=== PATIENT | male | born 1925 | race Caucasian/White ===

== ENCOUNTER 2016-05-28 17:57 | Inpatient (IN) | payer MEDICARE, BC ==
[~2016-05-28] VITALS: Ht 177.8 cm; Wt 64.4 kg
[2016-05-28] MEDS: NovoLOG Insulin Flexpen SUBQ SCH (00:30)
[2016-05-28 18:18] VITALS: BP 73/52
[2016-05-28] MEDS ORDERED: Solu-MEDROL 125mg Inj IVP ONE (18:30)
[2016-05-28 19:00] VITALS: BP 73/52
[2016-05-28 19:15] LABS: APPEARANCE,URINE CLEAR; KETONES,URINE NEGATIVE (NEGATIVE); LEUKOCYTE ESTERASE ,URINE NEGATIVE (NEGATIVE); NITRITE,URINE NEGATIVE (NEGATIVE); PH,URINE 5 (4.5-8.0); PROTEIN,URINE NEGATIVE (NEGATIVE); UROBILINOGEN,URINE NORMAL MG/DL (0.0-1.0)
[2016-05-28 19:24] LABS: AMORPHOUS SEDIMENT,UR FEW /LPF; BACTERIA,URINE FEW /HPF; WBC,URINE 0-2 /HPF (0 - 0)
[2016-05-28 19:26] LABS: MEAN CORPUSCULAR HEMOGLOBIN 34.5 PG (27.0-31.0); MEAN CORPUSCULAR HGB CONC 35.1 G/DL (32.0-36.0); MEAN CORPUSCULAR VOLUME 98 FL (80-99); MEAN PLATELET VOLUME 6.1 FL (6.5-10.1); PLATELET COUNT 285 K/UL (150-450); RED BLOOD COUNT 3.82 M/UL (4.70-6.10); RED CELL DISTRIBUTION WIDTH 13.6 % (11.6-14.8); WHITE BLOOD COUNT 13.5 K/UL (4.8-10.8)
[2016-05-28 19:36] LABS: REFLEX LACTIC ACID YES OR NO YES
[2016-05-28] MEDS ORDERED: Piperacillin/Tazobactam 3.375 GM in NS 110 ML IVPB ONE (20:15)
[2016-05-28] MEDS ORDERED: Zosyn 3.375gm inj ONE (20:21)
[2016-05-28 20:31] LABS: ALANINE AMINOTRANSFERASE 83 U/L (3-41); ALBUMIN/GLOBULIN RATIO 0.7 (1.0-2.7); ANION GAP 21 (5-15); ASPARTATE AMINO TRANSFERASE 83 U/L (5-40); CHLORIDE 116 mEQ/L (98-107); CREATININE 1.4 mg/dL (0.7-1.2); HEMOLYSIS 31; POTASSIUM 3.5 mEQ/L (3.4-4.9); SODIUM 143 mEQ/L (135-145); TOTAL PROTEIN 3.2 g/dL (6.6-8.7)
[2016-05-28 20:40] LABS: TROPONIN I 3.13 ng/mL (<=0.30)
[2016-05-28 20:43] LABS: CKMB 8.6 ng/mL (< 6.7)
[2016-05-28 20:50] LABS: CARBON DIOXIDE < 6 mEQ/L (20-30)
[2016-05-28 20:51] LABS: BAND NEUTROPHILS % (MANUAL) 1 % (0-8); EOSINOPHILS % (MANUAL) 1 % (0-3); LYMPHOCYTES % (MANUAL) 10 % (20-45); NEUTROPHILS % (MANUAL) 83 % (45-75); TOTAL CELLS COUNTED 100
[2016-05-28 20:51] LABS: CALCIUM 4.6 mg/dL (8.6-10.2)
[2016-05-28 20:52] LABS: BASOPHILS % (MANUAL) 0 % (0-2); PLATELET ESTIMATE ADEQUATE; PLATELET MORPHOLOGY NORMAL
[2016-05-28] MEDS ORDERED: Vancomycin 1gm inj IVPB ONE (21:09)
[2016-05-28 21:20] VITALS: BP 107/57
[2016-05-28] MEDS ORDERED: Vancomycin 1gm/D5W 275ml IVPB ONE ×2 (21:30)
[2016-05-28] MEDS ORDERED: Aspirin Baby 81mg ORAL ONE (21:30)
--- NOTE | 2016-05-28 22:08 | Emergency Room Report ---
History of Present Illness General Chief Complaint: Generalized Weakness Source: Patient, Family Member, EMS Present Illness HPI 89-year-old male presents to ED for evaluation. Patient brought in because for the last few days he's been feeling very weak and not eating or drinking. BP low as per EMS. Patient has extensive cardiac history, pacemaker, history of rheumatoid arthritis. Patient recently started on injections for rheumatoid arthritis which made him very weak with poor appetite. Denies any fevers or chills. Denies chest pain or shortness of breath. PMD is Dr. Mahmood. No other aggravating or relieving factors. Denies any other associated symptoms Allergies: Coded Allergies: No Known Allergies (Unverified , 05/28/16) Patient History Past Medical History: other - rheumatoid lung Past Surgical History: pacemaker Pertinent Family History: none Social History: Denies: alcohol use, drug use, smoking Immunizations: UTD Reviewed Nursing Documentation: PMH: Agreed, PSxH: Agreed Nursing Documentation-PMH Past Medical History: No History, Except For Hx Cardiac Problems: Yes - PACEMAKER Review of Systems All Other Systems: negative except mentioned in HPI Physical Exam Vital Signs Date Time Temp Pulse Resp B/P Pulse Ox O2 Delivery O2 Flow Rate FiO2 05/28/16 18:00 96 20 68/43 100 Room Air Sp02 EP Interpretation: reviewed, normal General Appearance: cachetic, lethargic, thin Head: normocephalic Eyes: bilateral eye PERRL, bilateral eye normal inspection ENT: hearing grossly normal, normal pharynx, no angioedema, normal voice Neck: full range of motion, supple/symm/no masses Respiratory: crackles Cardiovascular #1: regular rate, rhythm, no edema Gastrointestinal: normal bowel sounds, non tender, soft, non-distended, no guarding, no rebound Rectal: deferred Genitourinary: no CVA tenderness Musculoskeletal: normal inspection Neurologic: other - lethagic Psychiatric: other - lethargic Skin: normal inspection Lymphatic: normal inspection Procedures Critical Care Time Critical Care Time i. I feel this is a highly complex case requiring extensive working including EKG/Rhythm strip, Xray/CT/US, Blood/urine lab work, repeat exams while in ED, and administration of strong opiates/narcotics for pain control, admission to hospital or close patient follow up. Total time: 30 min bedside evaluation and treatment excludes procedures (EKG). Reason for critical care: hypotensive. weak. elevated troponin Possible complications: hypotension, hypertension, [place], shock, arrhythmias, metabolic acidosis, end organ damage, respiratory failure. Interventions: labs, IVFs, solumedrol. Abx. Aspirin Course: Patient brought in for hypotension and weakness. WBC elevated, trop > 3 , lactate > 3. BP slowly improving with IVFs. solumedrol. given abx. given aspirin Consultations: nursing staff, EMS, family Performed by: Dr Lutz Tolerated well condition = critical j. because of unstable vital signs this patient had a condition that could potentially threaten life or limb. I feel this is a critical patient who required my full attention while patient was considered critical. Total Critical Care Time excluding procedures was greater than 35 minutes Medical Decision Making Diagnostic Impression: Primary Impression: NSTEMI (non-ST elevated myocardial infarction) Additional Impressions: Severe sepsis Hypotension Qualified Codes: I95.9 - Hypotension, unspecified CHF exacerbation Qualified Codes: I50.9 - Heart failure, unspecified ER Course Hospital Course He-year-old male brought to ED for generalized weakness, poor appetite, hypotensive Differential diagnoses include: [place]/unstable angina, sepsis, dehydration Clinical course patient placed on stretcher. After initial history and physical I ordered labs , IV fluids, EKG, chest x-ray labs reviewed- noted leukocytosis, electrolytes ok, lactate > 3, troponins > 3, BNP elevated EKG- Ventricular paced rhythm, no acute ischemic chhanges Chest x-ray- pacemaker, cardiomegaly. bilateral intersitital changes Initially hypotensive despite IV fluids. Given Solu-Medrol and more IV fluids. BP slowly improving. Given aspirin. given abx. Case discussed with Dr. Mahmood and he agreed to accept the patient to his service for further care and support I. I feel this is a highly complex case requiring extensive working including EKG/Rhythm strip, Xray/CT/US, Blood/urine lab work, repeat exams while in ED, and administration of strong opiates/narcotics for pain control, admission to hospital or close patient follow up. Diagnosis - NSTEMI, severe sepsis, hypotension, CHF exacebration admitted to ICU in critical condition Labs Test 05/28/16 18:30 05/28/16 19:00 05/28/16 19:54 05/28/16 20:42 Urine Color Pale yellow Urine Appearance Clear Urine pH 5 (4.5-8.0) Urine Specific [place] 1.020 (1.005-1.035) Urine Protein Negative (NEGATIVE) Urine Glucose (UA) Negative (NEGATIVE) Urine Ketones Negative (NEGATIVE) Urine Occult Blood 2+ (NEGATIVE) Urine Nitrite Negative (NEGATIVE) Urine Bilirubin Negative (NEGATIVE) Urine Urobilinogen Normal MG/DL (0.0-1.0) Urine Leukocyte Esterase Negative (NEGATIVE) Urine RBC 2-4 /HPF (0 - 0) Urine WBC 0-2 /HPF (0 - 0) Urine Squamous Epithelial Cells None /LPF (NONE/OCC) Urine Amorphous Sediment Few /LPF (NONE) Urine Bacteria Few /HPF (NONE) White Blood Count 13.5 K/UL (4.8-10.8) Red Blood Count 3.82 M/UL (4.70-6.10) Hemoglobin 13.2 G/DL (14.2-18.0) Hematocrit 37.5 % (42.0-52.0) Mean Corpuscular Volume 98 FL (80-99) Mean Corpuscular Hemoglobin 34.5 PG (27.0-31.0) Mean Corpuscular Hemoglobin Concent 35.1 G/DL (32.0-36.0) Red Cell Distribution Width 13.6 % (11.6-14.8) Platelet Count 285 K/UL (150-450) Mean Platelet Volume 6.1 FL (6.5-10.1) Neutrophils (%) (Auto) % (45.0-75.0) Lymphocytes (%) (Auto) % (20.0-45.0) Monocytes (%) (Auto) % (1.0-10.0) Eosinophils (%) (Auto) % (0.0-3.0) Basophils (%) (Auto) % (0.0-2.0) Differential Total Cells Counted 100 Neutrophils % (Manual) 83 % (45-75) Lymphocytes % (Manual) 10 % (20-45) Monocytes % (Manual) 5 % (1-10) Eosinophils % (Manual) 1 % (0-3) Basophils % (Manual) 0 % (0-2) Band Neutrophils 1 % (0-8) Platelet Estimate Adequate Platelet Morphology Normal Red Blood Cell Morphology Normal Lactic Acid Level 3.20 mmol/L (0.66-2.22) 1.90 mmol/L (0.66-2.22) Sodium Level 143 mEQ/L (135-145) Potassium Level 3.5 mEQ/L (3.4-4.9) Chloride Level 116 mEQ/L (98-107) Carbon Dioxide Level < 6 mEQ/L (20-30) Anion Gap 21 (5-15) Blood Urea Nitrogen 68 mg/dL (7-23) Creatinine 1.4 mg/dL (0.7-1.2) Estimat Glomerular Filtration Rate mL/min (>60) Glucose Level 183 mg/dL (74-106) Calcium Level 4.6 mg/dL (8.6-10.2) Total Bilirubin 0.2 mg/dL (0.0-1.2) Aspartate Amino Transf (AST/SGOT) 83 U/L (5-40) Alanine Aminotransferase (ALT/SGPT) 83 U/L (3-41) Alkaline Phosphatase 44 U/L (40-129) Total Creatine Kinase 93 U/L (38-174) Creatine Kinase MB 8.6 ng/mL (< 6.7) Creatine Kinase MB Relative Index 9.2 Troponin I 3.13 ng/mL (<=0.30) Pro-B-Type Natriuretic Peptide 93554 pg/mL (0-450) Total Protein 3.2 g/dL (6.6-8.7) Albumin 1.4 g/dL (3.5-5.2) Globulin 1.8 g/dL Albumin/Globulin Ratio 0.7 (1.0-2.7) EKG Diagnostic Results Rate: normal Rhythm: other - ventiricular paced ST Segments: no acute changes ASA given to the pt in ED: No Rhythm Strip Diag. Results EP Interpretation: yes Rhythm: no PVC's, no ectopy Chest X-Ray Diagnostic Results EP Interpretation: Yes Findings: no pneumothorax, no acute cardiopulmonary disease, other - pacemaker. cardiomegaly. interstitial lung changes Number of Views: 1 Last Vital Signs Date Time Temp Pulse Resp B/P Pulse Ox O2 Delivery O2 Flow Rate FiO2 05/28/16 18:18 103 20 73/52 100 Room Air Status: improved Disposition: ADMITTED INPATIENT Condition: Critical Referrals: URIAH MAHMOOD (PCP) CLIVE LUTZ M.D. May 28, 2016 22:08
[2016-05-28 23:04] VITALS: BP 107/88
[2016-05-28] MEDS ORDERED: PREDNISONE5 M3 PO (23:24)
[2016-05-28] MEDS ORDERED: TURMERIC ROOT5000 GM MC (23:24)
[2016-05-28] MEDS ORDERED: TYLENOL EXTRA500 MG ORAL (23:24)
[2016-05-28] MEDS ORDERED: FOLIC ACID1 MG ORAL (23:24)
[2016-05-28] MEDS ORDERED: ECOTRIN325 MG ORAL (23:24)
[2016-05-28] MEDS ORDERED: LISINOPRIL10 MG ORAL (23:24)
[2016-05-28] MEDS ORDERED: LIPITOR20 MG ORAL (23:24)
[2016-05-28] MEDS ORDERED: LEVOTHYROXINE100 MCG ORAL (23:24)
[2016-05-28] MEDS ORDERED: BRILINTA90 MG PO (23:24)
[2016-05-28] MEDS ORDERED: STARLIX60 MG ORAL (23:24)
[2016-05-28] MEDS ORDERED: VITAMIN D1000 UNI1 ORAL (23:24)
[2016-05-28] MEDS ORDERED: METOPROLOL TART25 MG ORAL (23:24)
[2016-05-28] MEDS ORDERED: ORENCIA SQ (23:24)
[2016-05-28] MEDS ORDERED: GLYBURIDE5 MG PO (23:24)
[2016-05-29] VITALS (35 sets, daily range): BP systolic 31–123; BP diastolic 11–104
[2016-05-29] MEDS: DuoNeb 0.5-3(2.5)mg/3ml neb HHN SCH ×5 (01:00→19:33)
[2016-05-29] MEDS ORDERED: Cefepime HCl 1 GM in D5W 55 ML IVPB SCH (02:00)
[2016-05-29] MEDS ORDERED: Cefepime 1gm vial ONE (02:01)
[2016-05-29] MEDS: NovoLOG Insulin Flexpen SUBQ SCH ×4 (06:01→21:00)
[2016-05-29] MEDS ORDERED: NovoLOG Insulin Flexpen SUBQ SCH (06:30)
[2016-05-29] MEDS: Hydrocortisone 100mg Inj IV SCH ×3 (08:22→22:00)
--- NOTE | 2016-05-29 09:39 | Diagnostic Imaging Report ---
Indications: Shortness of breath Technique: Portable AP chest Findings: Comparison: None Suboptimal inspiration limits evaluation. Interstitial markings diffusely increased throughout both lungs with superimposed parenchymal lucencies. More discrete linear densities right lung base. Heart size within normal limits. Pulmonary vasculature obscured. No obvious pleural abnormalities. Aortic arch calcified. Left chest wall pacemaker. Left glenohumeral joint narrowed with marginal osteophyte formation. 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 Superimposed acute interstitial infiltrate, whether congestive or inflammatory, not excludable Subsegmental atelectasis versus scarring right lung base Aortosclerosis Pacemaker Left glenohumeral degenerative arthropathy
[2016-05-29] MEDS ORDERED: DOPamine 400mg/250ml 250 ML IV SCH (10:00)
[2016-05-29 10:41] LABS: MEAN CORPUSCULAR HEMOGLOBIN 31.9 PG (27.0-31.0); MEAN CORPUSCULAR HGB CONC 31.9 G/DL (32.0-36.0); MEAN CORPUSCULAR VOLUME 100 FL (80-99); MEAN PLATELET VOLUME 6.4 FL (6.5-10.1); PLATELET COUNT 278 K/UL (150-450); RED BLOOD COUNT 3.94 M/UL (4.70-6.10); RED CELL DISTRIBUTION WIDTH 13.9 % (11.6-14.8); WHITE BLOOD COUNT 10.9 K/UL (4.8-10.8)
[2016-05-29 11:12] LABS: REFLEX LACTIC ACID YES OR NO YES
[2016-05-29 11:34] LABS: BAND NEUTROPHILS % (MANUAL) 0 % (0-8); BASOPHILS % (MANUAL) 0 % (0-2); EOSINOPHILS % (MANUAL) 0 % (0-3); LYMPHOCYTES % (MANUAL) 5 % (20-45); MACROCYTES 1+; NEUTROPHILS % (MANUAL) 90 % (45-75); PLATELET ESTIMATE ADEQUATE; PLATELET MORPHOLOGY NORMAL; TOTAL CELLS COUNTED 100
[2016-05-29] MEDS ORDERED: LORazepam Inj 2mg/ml 1ml IV ONE (15:20)
[2016-05-29 16:00] LABS: ALBUMIN/GLOBULIN RATIO 0.8 (1.0-2.7); ANION GAP 26 (5-15); CALCIUM 8.2 mg/dL (8.6-10.2); CHLORIDE 103 mEQ/L (98-107); CREATININE 2.7 mg/dL (0.7-1.2); HEMOLYSIS 8; SODIUM 137 mEQ/L (135-145); TOTAL PROTEIN 6.7 g/dL (6.6-8.7)
[2016-05-29 16:01] LABS: ABG ALLEN TEST POSITIVE; ABG BASE EXCESS -20.5; ABG PCO2 16.9 mmHg (35.0-45.0)
[2016-05-29 16:03] LABS: TROPONIN I 5.38 ng/mL (<=0.30)
[2016-05-29 16:05] LABS: CARBON DIOXIDE 8 mEQ/L (20-30)
[2016-05-29 16:15] LABS: ALANINE AMINOTRANSFERASE 1398 U/L (3-41); ASPARTATE AMINO TRANSFERASE 1098 U/L (5-40)
--- NOTE | 2016-05-29 17:29 | Emergency Room Report ---
Physical Exam Asked to intubate patient. Patient with respiratory distress and low bicarb. Last 24 Hour Vital Signs Date Time Temp Pulse Resp B/P Pulse Ox O2 Delivery O2 Flow Rate FiO2 05/29/16 22:00 72 25 33/18 Mechanical Ventilator 05/29/16 21:00 80 26 34/16 61 Mechanical Ventilator 05/29/16 20:45 55/15 05/29/16 20:45 82 25 44/25 Mechanical Ventilator 05/29/16 20:34 80 27 100 05/29/16 20:30 84 27 35/21 85 Mechanical Ventilator 05/29/16 20:15 80 25 31/18 100 Mechanical Ventilator 05/29/16 20:00 75 05/29/16 20:00 78 25 46/17 Mechanical Ventilator 05/29/16 19:45 80 26 123/104 92 Mechanical Ventilator 05/29/16 19:44 85 21 98 Mechanical Ventilator 100 05/29/16 19:33 74 21 98 Mechanical Ventilator 100 05/29/16 19:30 77 22 51/11 92 Mechanical Ventilator 05/29/16 19:15 81 22 100 05/29/16 19:15 77 22 71/41 55 Mechanical Ventilator 05/29/16 19:00 77 22 43/11 55 Mechanical Ventilator 05/29/16 18:45 78 23 57/29 55 Mechanical Ventilator 05/29/16 18:30 77 25 47/22 55 Mechanical Ventilator 05/29/16 18:15 75 31 67/43 55 Mechanical Ventilator 05/29/16 18:00 73 26 66/11 55 Mechanical Ventilator 05/29/16 17:45 75 25 119/101 67 Mechanical Ventilator 05/29/16 17:30 62 27 88/73 56 Mechanical Ventilator 05/29/16 17:15 63 30 54/39 55 Mechanical Ventilator 05/29/16 17:00 117 33 79/42 55 Mechanical Ventilator 05/29/16 16:55 122 34 70 05/29/16 16:00 63 27 70/47 49 Nasal Cannula 4.0 05/29/16 16:00 122 05/29/16 15:00 64 28 106/52 92 Nasal Cannula 4.0 05/29/16 14:00 113 27 110/27 92 Nasal Cannula 4.0 05/29/16 13:00 102 26 120/22 86 Nasal Cannula 4.0 05/29/16 12:50 95 22 93 Nasal Cannula 5.0 05/29/16 12:03 88 22 93 Nasal Cannula 5.0 These include VS after intubation and central line. Sp02 EP Interpretation: reviewed, abnormal - as interpreted by me General Appearance: severe distress, thin, Stupor Head: normocephalic Eyes: bilateral eye PERRL ENT: dry mucus membranes Neck: supple Respiratory: no accessory muscle use, respiratory distress, rales Cardiovascular #1: tachycardia Cardiovascular #2: 1+ femoral (R) Gastrointestinal: abnormal bowel sounds - decreased Genitourinary: other - condom cath Musculoskeletal: other Neurologic: responsive, other - moving upper extremities Psychiatric: other - stupor Skin: mottled Central Line Central Line : Consent: Emergent Central Line Lumen: triple Maximal Sterile Barrier Tech: yes cap, yes mask, yes sterile gown, yes sterile gloves, yes large sterile sheet, yes hand hygiene, yes chlorhexidine prep Central Line Postion: femoral (R) Anesthesia: other - none Complications: none Central Line Post Position: sutured, good blood return Attempts: One Patient Tolerated: Well Complications: None Intubation Intubation : Consent: Emergent Tube Size (cm): 7.5 Medications: Etomidate Breath Sounds after Intubation: equal Intubation Complications: no complications Post Intubation Xray: Yes Attempts: One Patient Tolerated: Well Complications: None Progress pretreated with 1 amp bicarb. Also etomidate 5 mg IV. Medical Decision Making Diagnostic Impression: Primary Impression: NSTEMI (non-ST elevated myocardial infarction) Additional Impressions: Severe sepsis CHF exacerbation Qualified Codes: I50.9 - Heart failure, unspecified Hypotension Qualified Codes: I95.9 - Hypotension, unspecified ER Course Patient with respiratory distress, hypoxia and metabolic acidosis. See procedure notes. Tolerated well. Patient prognosis grim. Second note. Called to pronounce patient. Patient without heart sounds. Pacer spikes without capture. Pronounced at 22:40. Disposition: Condition: Referrals: SANJIV PIERCE (PCP) Sanjiv Naik M.D. May 29, 2016 17:29
[2016-05-29] MEDS ORDERED: Sodium Bicarbonate 8.4% 50ml Inj IV ONE (17:30)
[2016-05-29] MEDS ORDERED: Etomidate 40mg/20ml Inj IV ONE (17:30)
[2016-05-29 17:53] LABS: ANION GAP 25 (5-15); CALCIUM 7.6 mg/dL (8.6-10.2); CARBON DIOXIDE 10 mEQ/L (20-30); CHLORIDE 106 mEQ/L (98-107); HEMOLYSIS 20; SODIUM 141 mEQ/L (135-145)
[2016-05-29 17:58] LABS: POTASSIUM 6.9 mEQ/L (3.4-4.9)
[2016-05-29 18:36] LABS: MEAN CORPUSCULAR HEMOGLOBIN 34.3 PG (27.0-31.0); MEAN CORPUSCULAR HGB CONC 33.9 G/DL (32.0-36.0); MEAN CORPUSCULAR VOLUME 102 FL (80-99); MEAN PLATELET VOLUME 6.1 FL (6.5-10.1); PLATELET COUNT 287 K/UL (150-450); RED BLOOD COUNT 3.98 M/UL (4.70-6.10); RED CELL DISTRIBUTION WIDTH 14.2 % (11.6-14.8)
[2016-05-29 19:25] LABS: ABG ALLEN TEST POSITIVE; ABG BASE EXCESS -24.3; ABG PCO2 29.5 mmHg (35.0-45.0)
[2016-05-29 19:35] LABS: BAND NEUTROPHILS % (MANUAL) 3 % (0-8); LYMPHOCYTES % (MANUAL) 6 % (20-45); NEUTROPHILS % (MANUAL) 88 % (45-75); TOTAL CELLS COUNTED 100
[2016-05-29 19:36] LABS: ANISOCYTOSIS 1+; BASOPHILS % (MANUAL) 0 % (0-2); EOSINOPHILS % (MANUAL) 0 % (0-3); MACROCYTES 1+; PLATELET ESTIMATE ADEQUATE; PLATELET MORPHOLOGY NORMAL
[2016-05-29] MEDS ORDERED: Sodium Bicarbonate 100 ML in D5W 1000ml 1,000 ML IV SCH (20:00)
[2016-05-29] MEDS ORDERED: Sodium Polystyrene Sulfonate Enema RECTAL ONE ×2 (20:00)
[2016-05-29] MEDS ORDERED: Levophed 4mg/4mL Inj IV ONE (20:01)
--- NOTE | 2016-05-29 20:28 | Consultation ---
Consult Note Assessment/Plan [id number] ANSON Grewal DO May 29, 2016 20:28
[2016-05-29] MEDS ORDERED: Sodium Polystyrene Sulfonate 15gm Powder NG ONE (20:30)
[2016-05-29] MEDS ORDERED: Vancomycin 750mg/D5W 275ml IVPB SCH ×2 (21:00)
[2016-05-29] MEDS ORDERED: Tubing IV Secondary IV ONE ×2 (23:05)
[2016-05-29] MEDS ORDERED: 1/2 NS 1000ml IV ONE ×2 (23:05)
--- NOTE | 2016-05-29 23:58 | Consultation ---
DATE OF CONSULTATION: 05/29/2016 CARDIOLOGY CONSULTATION CONSULTING PHYSICIAN: Sanjiv Mahmood M.D. REQUESTING PHYSICIAN: Eliel Palomo M.D. CRITICAL CARE: Two hours. Time Of Evaluation: 5:30 to 7:30 p.m. HISTORY OF PRESENT ILLNESS: This is an 89-year-old male with rheumatoid arthritis and ischemic heart disease. He has had poor intake, weakness and general malaise for the past several days with poor appetite. In general for the past few weeks following his treatment with Orencia his family members noted a decline in his overall function. His home health nurse noted low blood pressure as well and worsening sacral wound, prompting transfer to the hospital by paramedics. In the emergency room, the patient was hypotensive. He was evaluated by myself and critical care time included assistance with IV access, central venous access, oxygenation, fluid management and discussions with family members as well. 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 ALLERGIES: None. MEDICATIONS: Prior to admission, reviewed and reconciled. SOCIAL HISTORY: No active smoking, alcohol, or substance abuse. FAMILY HISTORY: Notable for lymphoma in a brother and coronary disease in another brother. REVIEW OF SYSTEMS: No fevers or chills. He has had poor appetite. He has episodic diarrhea. No melena. There is no history of C. difficile. He has chronic kidney disease. No history of prostate cancer. He has rheumatoid arthritis. He has had increasing pain in his hands and joint deformities. He started Orencia and received his second dose in last week. There is no history of seizure or stroke. His most recent echocardiogram in the last three months revealed normal ejection fraction with concentric hypertrophy. He has a [employer] permanent pacemaker with recent interrogated function appearing normal and adequate battery life. There is no history of atrial or ventricular sustained arrhythmias. There is no history of asthma or blood clots in the legs. He has been on dual anti-platelet therapy for sometime. PHYSICAL EXAMINATION: GENERAL: The patient is a well-developed, well-nourished, in moderate distress. He is afebrile. VITAL SIGNS: Blood pressure is 75/50, heart rate 83, and respiratory rate 16. HEENT: Temporal wasting. Pale conjunctivae. Oropharynx is clear. Mucous membranes dry. NECK: Supple. LUNGS: With bilateral rales. CARDIAC: Regular rhythm and rate. Normal S1, paradoxically split S2. A 1/6 systolic murmur at apex. ABDOMEN: Soft and nontender. No guarding or rebound. EXTREMITIES: No edema. Sacral wound is pictured. NEUROLOGIC: Reveals symmetric strength. The patient is awake and alert x3 and appropriate responses. LABORATORY AND DIAGNOSTIC DATA: EKG reveals a paced rhythm. Troponin level is above 3. White count 13.5 and hemoglobin 13.2. Sodium 143, potassium 3.5, bicarbonate 6, BUN 68 and creatinine 1.4. Pro-natriuretic peptide is 14,000. Lactic acid is 1.9, which is normal. IMPRESSION: 1. Metabolic acidosis. 2. Severe dehydration. 3. Acute and chronic renal failure. 4. Acute myocardial infarction. 5. Acute and chronic diastolic congestive heart failure. 6. Severe protein-calorie malnutrition with albumin of 1.4. 7. Pneumonia probable early sepsis with shock. 8. Decubitus. PLAN: 1. Intensive care unit care. 2. Saline hydration 3. Bicarbonate as needed. 4. Monitor acid-base parameters. 5. Antiplatelet therapy. 6. If volume resuscitation is inadequate we will start pressors. 7. Wound care. 8. Protein supplement. 9. Broad-spectrum antibiotics. 10. Pulmonary and renal consults to follow. Sanjiv Mahmood M.D. DR: YUSUF JOB#: [id number] CC:
--- NOTE | 2016-05-30 03:38 | History and Physical Report ---
DATE OF ADMISSION: 05/28/2016 CHIEF COMPLAINT: Hypotension, altered mental status, respiratory failure, sepsis, and shock. HISTORY OF PRESENT ILLNESS: The patient is an 89-year-old male. He has a history of rheumatoid arthritis, hypertension, congestive heart failure, and history of pacemaker. He was admitted from home with complaints of generalized weakness, hypotension, malaise, and poor appetite. On initial evaluation in the emergency room, the patient is noted to have leukocytosis, elevated lactic acid level, and elevated troponin. X-ray showed bilateral infiltrates. The patient was hypotensive and started on IV fluids. A dose of steroids was also given. While in the hospital, the patient became progressively more tachypneic and acidotic eventually required an intubation. He is now on dopamine drip and is orally intubated. The patient recently was started on Orencia for rheumatoid arthritis. No reports of any diarrhea, fevers, chills, chest pain, or shortness of breath. PAST MEDICAL HISTORY: As above. PAST SURGICAL HISTORY: Includes a pacemaker. CURRENT MEDICATIONS: Reconciled and reviewed. ALLERGIES: None. FAMILY HISTORY: None. SOCIAL HISTORY: There is no known history of tobacco, ethanol, or drugs. REVIEW OF SYSTEMS: Unobtainable as the patient is intubated. PHYSICAL EXAMINATION: VITAL SIGNS: Temperature was 98 degrees, pulse 96, blood pressure 110/27, and respirations 27. GENERAL: The patient is pale, orally intubated, and poorly responsive. NECK: Supple. HEART: Regular rate and rhythm. LUNGS: Clear. ABDOMEN: Soft, nontender, and nondistended. EXTREMITIES: Without clubbing or cyanosis. LABORATORY AND DIAGNOSTIC DATA: UA was negative. The white count was 13.5, hemoglobin 13, hematocrit 37, and platelet count 285,000. ABG showed pH of 7.16, pCO2 of 16, and pO2 of 183. Bicarbonate is 6. O2 saturation was 98%. Sodium was 137, potassium 6, chloride 103, bicarbonate 8, BUN 108, creatinine 2.7, and glucose of 330. Lactic acid was 8.5. AST was 10,098, ALT was 1398, and troponin is 5.38. Chest x-ray showed bilateral diffuse infiltrates. ASSESSMENT: This is an 89-year-old male with a history of hypertension, conduction system disease status post pacemaker, rheumatoid arthritis, admitted with sepsis and respiratory failure, lactic acidosis, acute renal failure, possible pneumonia, and transaminitis. PLAN: Ventilatory support. Continue pressors. Intravenous hydration. Monitor electrolytes and renal function. Check an abdominal ultrasound. The patient's status is currently critical and guarded. Eliel Palomo M.D. DR: SHI JOB#: [id number] CC:
--- NOTE | 2016-05-30 09:30 | Diagnostic Imaging Report ---
Indications: Intubation Technique: Portable AP chest Findings: Comparison: 05/28/16 Endotracheal tube has been placed, tip 4 cm above lory. Pulmonary inflation has improved. Increased interstitial markings persist diffusely throughout both lungs, again with superimposed small caliber lucencies intermixed. Bilateral costophrenic angles currently appear slightly blunted. Right minor fissure currently appears mildly thickened. Cardiac silhouette enlarged. Pulmonary vasculature obscured. No other change. 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 Again, superimposed on or edema in the setting of congestive heart failure not excludable suggestion of development versus better visualization of small bibasal pleural effusions, may also be congestive if real This correlates with [facility] preliminary report.
--- NOTE | 2016-05-31 05:49 | Progress Note ---
DATE: 05/29/2016 TIME: 3-5 p.m. HISTORY: The patient deteriorated this afternoon with worsening metabolic acidosis, altered mentation, hypoxia, and bradyarrhythmias. He required intubation and mechanical ventilation. Bicarbonate drip was initiated. He was continued on IV antibiotics. Multiple meetings with family members took place and the critical condition discussed. Ultimately DNI was put into place based on his declining state and poor prognosis. The patient's blood pressure was below 90 systolic and dopamine followed by Levophed was initiated. Earlier stress dose steroid was given with only marginal response. The patient's renal function worsened but because of his hypotension, he was not felt to be a candidate for dialysis. PHYSICAL EXAMINATION: HEENT: Temporal wasting. Dry mucous membranes. LUNGS: Bilateral breath sounds. ABDOMEN: Soft. HEART: Irregularly irregular rhythm. Normal S1, paradoxically split S2. EXTREMITIES: Without edema. NEUROLOGICAL: No new focal neurologic deficits. IMPRESSION AND PLAN: 1. Multiorgan system failure. 2. Sepsis with shock. 3. Severe metabolic acidosis. 4. Acute renal failure. 5. Acute myocardial infarction. 6. Hypovolemia. 7. Permanent pacemaker. 8. Paroxysmal atrial fibrillation. 9. Acute respiratory failure. 10. Therapy broad-spectrum antibiotics. 11. Ventilator support. 12. Stress dose steroids. 13. Pressors. 14. Bicarb drip. 15. Deep venous thrombosis and stress ulcer prophylaxis. DNR. 16. Family made aware of critical condition and grave prognosis. Sanjiv Mahmood M.D. DR: Jeff JOB#: [id number] CC:
--- NOTE | 2016-06-01 07:21 | Discharge Summary ---
Discharge Summary Hospital Course Date of Admission May 28, 2016 at 19:00 Date of Discharge May 29, 2016 at 23:06 Admitting Diagnosis weakness/hypotensive HPI Cuong Martinez is a 89 year old male who was admitted on May 28, 2016 at 19:00 for Weakness/Hypotensive Hospital Course summary # [id number] Discharge Discharge Disposition Patient Discharge Diagnoses: Discharge Instructions Discharge Instructions Special Instructions I have been assigned to complete a D/C Summary on this account. I was not involved in the patient management Winter Alejo NP ([place]) Jun 01, 2016 07:20
--- NOTE | 2016-06-01 08:07 | Discharge Summary ---
SUMMARY DATE OF ADMISSION: 05/28/2016 DATE OF EXPIRATION: 05/29/2016 REASON FOR ADMISSION: 89-year-old male with history of rheumatoid arthritis, hypertension, congestive heart failure, pacemaker was brought to emergency room for evaluation due to the complaints of generalized weakness, hypotension, malaise and poor appetite. The patient was recently started on treatment with Orencia for rheumatoid arthritis. Initial evaluation in emergency room revealed that the patient had leukocytosis-13.5, elevated lactic acid - 2.4, and elevated troponin -3.13. ECG with paced rhythm. CXR revealed diffuse bilateral interstitial disease, nonspecific, suspicious of pulmonary fibrosis. Superimposed acute interstitial infiltrate, whether congestive or inflammatory, were not excludable. Pro [id number]. Laboratory work also revealed acute hypocalcemia-4.6; severe metabolic acidosis (CO < 6) and renal insufficiency BUN-68 and creatinine-1.4. Patient was tachycardic (118-122), tachypneic (24-28), BP 70/47. The patient was started on the IV fluids, dose of steroid had been also given. The patient was given aspirin, started on empiric antibiotics and was transferred to ICU for further management. ADMITTING DIAGNOSES: 1. Severe sepsis. 2. Early shock 3. Pneumonia. 4. Hypotension. 4. Acute non-ST segment elevation myocardial infarction. 5. Congestive heart failure exacerbation. 6. Severe metabolic acidosis. 7. Sacral decubitus, present on admission. HOSPITAL STAY: The patient admitted to ICU. The patient required pressors for blood pressure support . Patient subsequently became progressively more tachypneic and acidotic as was evident on ABG and required emergent oral intubation. Ventilator support and pulmonary toilet provided. IV hydration maintained. Cardiology and Pulmonary consult seen and evaluated the patient. Acid base parameters were monitored. The patient started on antiplatelet therapy The patient started on broad-spectrum antibiotics. Troponin in am with trend up-5.38. K-6.0, renal parameters up t: BUN -108 and creatinine -2.7. Drastic elevation in transaminase : AST-1098 and ALT-1398. On 05/29/2016 at 2224 hours the patient noted to be in asystole. Family at the bedside declined to start CPR. The patient was pronounced by emergency room doctor at 2240. Cause of - cardiopulmonary arrest. FINAL DIAGNOSES: 1. Shock. 2. Severe sepsis. 3. s/p Cardiopulmonary arrest. 3. Acute hypoxemic respiratory failure requiring intubation. 4. Acute non-ST segment elevation myocardial infarction. 5. Acute on chronic diastolic congestive heart failure exacerbation. 6. Severe dehydration. 7. Acute on chronic renal failure. 8. Acute hyperkalemia 9. Shock liver 10. Severe protein-calorie malnutrition. 11. Severe metabolic acidosis. 12. Sacral decubitus, present on admission. Eliel Palomo M.D. [facility] GilbertCentral [facility] Psych[facility] Centerrolando N.PButch DR: Emilee JOB#: [id number] CC: RIANNA
== END 2016-05-29 23:06 | disposition expired | DRG 871 ==
LOC: EDBD 17:57 → EMR 18:45 → ICU 19:00 → EDBEDREQ 20:51 → EDBEDREQSVC 20:51 → EDBEDREQ 22:29
PROC: 0BH17EZ Insertion of Endotracheal Airway into Trachea, Via Natural or Artificial Opening (ICD-10-PCS; principal; 2016-05-28)
PROC: 3E033XZ Introduction of Vasopressor into Peripheral Vein, Percutaneous Approach (ICD-10-PCS; principal; 2016-05-28)
PROC: 5A1935Z Respiratory Ventilation, Less than 24 Consecutive Hours (ICD-10-PCS; principal; 2016-05-28)
PROC: 06HM33Z Insertion of Infusion Device into Right Femoral Vein, Percutaneous Approach (ICD-10-PCS; principal; 2016-05-28)
DX: A41.9 Sepsis, unspecified organism (principal); I21.4 Non-ST elevation (NSTEMI) myocardial infarction; J96.01 Acute respiratory failure with hypoxia; E43 Unspecified severe protein-calorie malnutrition; R65.21 Severe sepsis with septic shock; I50.33 Acute on chronic diastolic (congestive) heart failure; J18.9 Pneumonia, unspecified organism; N17.9 Acute kidney failure, unspecified; L89.159 Pressure ulcer of sacral region, unspecified stage; I13.0 Hypertensive heart and chronic kidney disease with heart failure and stage 1 through stage 4 chronic kidney disease, or unspecified chronic kidney disease; Z66 Do not resuscitate; M06.9 Rheumatoid arthritis, unspecified; E11.22 Type 2 diabetes mellitus with diabetic chronic kidney disease; N18.9 Chronic kidney disease, unspecified; E78.5 Hyperlipidemia, unspecified; E86.0 Dehydration; Z68.20 Body mass index [BMI] 20.0-20.9, adult; I48.0 Paroxysmal atrial fibrillation; Z95.0 Presence of cardiac pacemaker; Z98.61 Coronary angioplasty status
CPT/HCPCS: 36415; 36600; 71010; 80048; 80053; 81003; 82550; 82553; 82803; 82962; 83605; 83880; 84484; 85007; 85025; 87040; 87081; 93005; 94002; 94640; 94664; J1815; J7620